=== PATIENT | female | born 1930 | race Caucasian/White ===

== ENCOUNTER 2020-05-23 14:33 | Inpatient (IN) | payer MEDICARE, OTHER ==
[~2020-05-23] VITALS: Ht 154.9 cm; Wt 67.4 kg
[2020-05-23] VITALS (253 sets, daily range): BP systolic 76–125; BP diastolic 51–96; PULSE 92–124; TEMP 97.5–98.5; O2SAT 36–100
--- NOTE | 2020-05-23 15:30 | NUR ---
PATIENT ADMITED INTO ROOM 342 VIA EMS FROM [place]. A&O BUT PAMUNKEY. NOTED IRREGULAR HR, PATIENT HAS HX OF A-FIB. OTHER VSS. C/O ABD PAIN, ESPECIALLY WITH MOVEMENT. PATIENT RECEIVED IV DILAUDID & ORAL TYLENOL AT [facility]. PATIENT IS A LITTLE DROWSY BUT ARROUSES EASILY TO VERBAL STIMULI. ABD IS ROUND, SOFT AND WITH POSITIVE BOWL SOUNDS. PATIENT HAD A LAP ARTHUR 05/15 IN [place] AND ADMITTED HERE FOR ERCP. PATIENT HAS BEEN NPO. IV FLUIDS INFUSING INTO RIGHT FORARM IV. RIGHT AC IV TO INT. HEAD TO TOE ASSESSMENT WNL. ORIENTED TO ROOM. CALL LIGHT IN REACH.
--- NOTE | 2020-05-23 15:50 | NUR ---
HOSPITALIST AT BEDSIDE.
--- NOTE | 2020-05-23 16:50 | NUR ---
PATIENT GOING DOWN FOR ERCP. TALKED WITH DAUGHTER KIM. ALLAN AT BEDSIDE.
[2020-05-23] MEDS ORDERED: TYLENOL 500MG500 MG PO (17:50)
[2020-05-23] MEDS ORDERED: BUMEX2 MG PO (17:51)
[2020-05-23] MEDS ORDERED: ELIQUIS 2.5 PO (17:52)
[2020-05-23] MEDS ORDERED: TOPROL XL 25MG25 MG PO (17:53)
[2020-05-23] MEDS ORDERED: PROVENTIL0.09 MG/A1 IH (17:53)
[2020-05-23] MEDS ORDERED: RESTORIL 1515 MG/CAP PO (17:54)
[2020-05-23] MEDS ORDERED: ZOLOFT 50MG50 MG PO (17:55)
[2020-05-23] MEDS ORDERED: ATIVAN 0.50.5 MG/TAB PO (17:55)
[2020-05-23] MEDS ORDERED: LOTRISONE 0.05%1 CRE TOP (17:56)
--- NOTE | 2020-05-23 19:00 | NUR ---
Received report from ROOM SERVICE FOOD SERVER about patients post op condition. Nurse stated they were bringing patient over to ICU to admit to room 1. Patient arrived to unit via stretcher. VS as followed --99/51, 98% on 3L NC, 97.2 temperature, 122hr. Will resume care of patient at this time.
--- NOTE | 2020-05-23 19:27 | NUR ---
Patient arrived to unit at 1927, placed in ICU room 1. Received report from MAMADOU Estrada on surgical floor prior to patients procedure.
[2020-05-23 20:07] LABS: MEAN CELL VOLUME 105 fl (80.0-100.0); MEAN CORPUSCULAR HGB CONC 31 g/dl (33.0-37.0); MEAN PLATELET VOLUME 9.1 fl (7.4-10.4); PLATELET COUNT 312 K/mm3 (130-400); RED BLOOD COUNT 2.99 M/mm3 (4.10-5.30); REDCELL DISTRIBUTION WIDTH-CV 16.7 % (11.5-14.5)
[2020-05-23 20:14] LABS: HEMATOCRIT 31.3 % (37.0-47.0); HEMOGLOBIN 9.8 g/dl (12.5-16.0); MEAN CORPUSCULAR HEMOGLOBIN 33 pg (27.0-31.0)
--- NOTE | 2020-05-23 20:14 | NUR ---
Received critical lab WBC result of 53.1 for patient. Notified PETRA Claire of critical value at 2014.
[2020-05-23 20:20] LABS: CALCIUM 8.5 mg/dL (8.4-10.2); CREATININE, serum 1.75 (0.52-1.25); POTASSIUM 4.2 mmol/L (3.4-5.0); TOTAL PROTEIN 5.5 gm/dL (6.4-8.2)
[2020-05-23 20:35] LABS: ANISOCYTOSIS 1+; BAND 6 % (0-10); HYPOCHROMIA 1+; LYMPHOCYTE 3 % (20.0-51.0); METAMYELOCYTE 1 % (0-0); NEUTROPHILS 87 % (42.0-75.2); PLATELET ESTIMATE NORMAL (NORMAL)
[2020-05-23 20:50] LABS: TSH w REFLEX 3.69 uIU/mL (0.465-4.680)
--- NOTE | 2020-05-23 21:00 | NUR ---
Spoke with patients daughter, Megha Larsen, who gave updated medication list for patient. Nurse gave update on patient status to daughter. Daughter stated if nursing staff needs anything or has any questions to call. Daughters main concern is patients anxiety. Nurse assured daughter that patient had PRN orders for ativan that are similar to watch she takes at home and if any changes need to be made to help ease patients anxiety or make her more comfortable the patients care team would notifiy the hospitalist. Daughter appreciative of care and stated she would call for an update tomorrow morning.
[2020-05-24] VITALS (949 sets, daily range): BP systolic 100–123; BP diastolic 55–82; PULSE 87–112; TEMP 97.5–98.5; O2SAT 31–100
[2020-05-24] MEDS ORDERED: LASIX 40MG TABL40 MG PO (00:25)
[2020-05-24] MEDS ORDERED: FLAGYL500 MG PO (00:27)
--- NOTE | 2020-05-24 01:21 | NUR ---
Called PETRA Claire and notified of patient having soft pressures with maps ranging in the 63-69s. received orders to increase IV fluids to 100mls/hr
[2020-05-24 05:00] LABS: MEAN CELL VOLUME 103 fl (80.0-100.0); MEAN CORPUSCULAR HGB CONC 32 g/dl (33.0-37.0); PLATELET COUNT 257 K/mm3 (130-400); RED BLOOD COUNT 2.71 M/mm3 (4.10-5.30); REDCELL DISTRIBUTION WIDTH-CV 16.5 % (11.5-14.5)
[2020-05-24 05:07] LABS: HEMATOCRIT 27.8 % (37.0-47.0); HEMOGLOBIN 8.9 g/dl (12.5-16.0); MEAN CORPUSCULAR HEMOGLOBIN 33 pg (27.0-31.0)
--- NOTE | 2020-05-24 05:13 | NUR ---
Patient has belongings bag in room with change of clothes and shoes and a black purse with a wallet, eyeglasses and cell phone. patient did not want any valuables locked away.
[2020-05-24 05:15] LABS: ALBUMIN 2.8 gm/dL (3.5-5.0); BILIRUBIN,TOTAL 0.8 mg/dL (0.0-1.0); CREATININE, serum 1.62 (0.52-1.25); MAGNESIUM 1.7 mg/dL (1.6-2.3); POTASSIUM 3.9 mmol/L (3.4-5.0); TOTAL PROTEIN 5.2 gm/dL (6.4-8.2)
--- NOTE | 2020-05-24 05:15 | NUR ---
Received call from lab for critical WBC of 43.9. Physician not notified d/t wbc trending down from 53.1
[2020-05-24 05:47] LABS: BAND 16 % (0-10); HYPOCHROMIA 1+; LYMPHOCYTE 1 % (20.0-51.0); NEUTROPHILS 81 % (42.0-75.2)
[2020-05-24 05:48] LABS: ANISOCYTOSIS 1+; OVALOCYTES 1+; TEAR DROP CELLS 1+
[2020-05-24 05:49] LABS: PLATELET ESTIMATE NORMAL (NORMAL)
--- NOTE | 2020-05-24 19:31 | NUR ---
Received report from MAMADOU Galvan. All medications verified and all questions answered. Patient resting in bed watching TV during report. VSS. Will resume care at this time.
[2020-05-25] VITALS (337 sets, daily range): BP systolic 104–156; BP diastolic 56–82; PULSE 60–94; TEMP 97.6–98.1; O2SAT 75–100
[2020-05-25 05:58] LABS: MEAN CELL VOLUME 103 fl (80.0-100.0); MEAN CORPUSCULAR HGB CONC 31 g/dl (33.0-37.0); MEAN PLATELET VOLUME 9.5 fl (7.4-10.4); PLATELET COUNT 227 K/mm3 (130-400); RED BLOOD COUNT 2.53 M/mm3 (4.10-5.30); REDCELL DISTRIBUTION WIDTH-CV 16.7 % (11.5-14.5)
[2020-05-25 06:13] LABS: CREATININE, serum 1.46 (0.52-1.25); MAGNESIUM 1.9 mg/dL (1.6-2.3); POTASSIUM 3.8 mmol/L (3.4-5.0)
[2020-05-25 06:17] LABS: HEMATOCRIT 26.1 % (37.0-47.0); HEMOGLOBIN 8.1 g/dl (12.5-16.0); MEAN CORPUSCULAR HEMOGLOBIN 32 pg (27.0-31.0)
[2020-05-25 06:44] LABS: LYMPHOCYTE 5 % (20.0-51.0); NEUTROPHILS 89 % (42.0-75.2)
[2020-05-25 06:45] LABS: ANISOCYTOSIS 1+; HYPOCHROMIA 2+; PLATELET ESTIMATE NORMAL (NORMAL)
[2020-05-25 06:46] LABS: OVALOCYTES 1+
[2020-05-25] MEDS ORDERED: ELIQUIS 2.5 PO (12:00)
[2020-05-25] MEDS ORDERED: RESTORIL 1515 MG/CAP PO (12:00)
[2020-05-25] MEDS ORDERED: NORCO 325 MG-7.1 TAB PO (12:00)
[2020-05-25] MEDS ORDERED: FOLIC ACID 40400 MCG PO (12:00)
[2020-05-25] MEDS ORDERED: MULTI-VITAMIN W1 TA1 PO (12:01)
[2020-05-25] MEDS ORDERED: CALCIUM CARBON650 M2 (12:02)
--- NOTE | 2020-05-25 12:37 | NUR ---
Patient transfered from ICU. Report from [place]. Assessment completed. Med rec reviewed. Patient requested anxiety medication, reporting the masks her very anxious. Spoke with [employer] student ROBBY & we discussed her abdomen & she came & saw patient. Patient had a prior TONIO drain with an old dressing packed in site. Patient old dressing removed & a gauze & tegaderm applied, NO PACKING. Brusing noted to abdomen. Int to AC & IVF per orders to Right forearm. Left restricted extremity. Right hand elevated on pillows. Will monitor closely.
--- NOTE | 2020-05-25 14:26 | NUR ---
Patient now resting in bed. Toleated her lunch. Will monitor.
--- NOTE | 2020-05-25 16:27 | NUR ---
SW met with patient to complete intake. Patient states that she lives with her in [facility] [phone]. Patient states that her daughter Renuka [phone] handles all of her affairs, but is unsure about the actual [facility]- document. SW called daughter, but was unable to reach after intake was complete. Patient states she occasionally utilizes a walker and is independent with ADL's, however states that she does receive services from [facility] for assistance. Patient states that her PCP is DR. Rosario and she obtains medications from [facility]. Patient states her plan is to return to her home upon DC. SW will continue to follow.
--- NOTE | 2020-05-25 16:30 | NUR ---
Patient up to the bathroom. Voided. Steady gait. Ivf. [place] for pain. Sitting up and having a snack. Will monitor
--- NOTE | 2020-05-25 19:44 | NUR ---
Patient resting in bed. She did well with dinner. [place] relived pain. Bedside report to night nurse.
--- NOTE | 2020-05-25 22:59 | NUR ---
PT REFUSED ELIQUIS STATING IT COST TOO MUCH AND HER REGULAR BUFFET SERVER WAS GOING TO ORDER SOMETHING ELSE FOR HER. SHE STATED SHE HAD BEEN TAKING FREE SAMPLES OF ELIQUIS BEFORE NOW AND HAD BEEN ON COUMADIN PRIOR TO THAT. HOSPITALIST NOTIFIED. 1 TIME DOSE OF LOVENOX ADMIN.
[2020-05-26 04:09] VITALS: BP 128/71; PULSE 87; TEMP 98.4
[2020-05-26 06:03] LABS: MEAN CELL VOLUME 105 fl (80.0-100.0); MEAN CORPUSCULAR HGB CONC 31 g/dl (33.0-37.0); MEAN PLATELET VOLUME 9.4 fl (7.4-10.4); PLATELET COUNT 237 K/mm3 (130-400); RED BLOOD COUNT 2.45 M/mm3 (4.10-5.30); REDCELL DISTRIBUTION WIDTH-CV 16.5 % (11.5-14.5)
[2020-05-26 06:07] LABS: HEMATOCRIT 25.6 % (37.0-47.0); HEMOGLOBIN 7.8 g/dl (12.5-16.0); MEAN CORPUSCULAR HEMOGLOBIN 32 pg (27.0-31.0)
[2020-05-26 06:12] LABS: INR 1.1 (0.8-3.0); PROTHROMBIN TIME 12.5 SECONDS (9.7-12.8)
[2020-05-26 06:14] LABS: ALBUMIN 2.5 gm/dL (3.5-5.0); BILIRUBIN,TOTAL 0.4 mg/dL (0.0-1.0); CALCIUM 8.2 mg/dL (8.4-10.2); CREATININE, serum 1.25 (0.52-1.25); MAGNESIUM 1.9 mg/dL (1.6-2.3); POTASSIUM 3.9 mmol/L (3.4-5.0); TOTAL PROTEIN 4.9 gm/dL (6.4-8.2)
--- NOTE | 2020-05-26 06:30 | NUR ---
Warfarin Initial Dosing Pharmacy Note Ordering Provider: Jovi Singh MD Indication: Atrial fibrillation LABS: INR 1.1 Recommendation: New start warfarin, bridging with enoxaparin. Will continue Warfarin 5 mg po qHS. Pharmacy will follow daily INR levels.
[2020-05-26 07:12] VITALS: BP 127/64; PULSE 86; TEMP 98
[2020-05-26 07:25] LABS: ANISOCYTOSIS 1+; BAND 2 % (0-10); HYPOCHROMIA 1+; LYMPHOCYTE 7 % (20.0-51.0); PLATELET ESTIMATE NORMAL (NORMAL)
[2020-05-26 07:26] LABS: EOSINOPHIL 1 % (0-4); NEUTROPHILS 84 % (42.0-75.2)
[2020-05-26 07:28] LABS: OVALOCYTES 1+
--- NOTE | 2020-05-26 07:33 | NUR ---
Patient up to the chair this am for breakfast. [place] for pain per request. Pain to her abdomen. Patient has dyspnea with exertion. Vss on O2. Edema noted. Will monitor.
[2020-05-26 11:00] VITALS: BP 120/58; PULSE 78; TEMP 97.9
--- NOTE | 2020-05-26 11:02 | NUR ---
Patient resting in bed. Vss on room air. She worked with therapy. One Int Dc due to infiltration
[2020-05-26 15:22] VITALS: BP 125/70; PULSE 90; TEMP 98.2
--- NOTE | 2020-05-26 16:42 | NUR ---
The patient will be needing IV antibiotics at discharge once daily for two weeks and PICC care. The patient has [facility] and would like to continue with them. Computer Support Analyst contacted [facility] and Yarelis, Clinical Application Systems Engineer with [facility] and they are willing to go to the patient's home to administer the antibiotic daily for the two week course. KIKA faxed referral to [facility] for IV antibiotic. Tracey with [facility] is checking benefits and will inform KIKA if they can accommodate the patient. KIKA met with the patient to review options for antibiotic administration. The patient was in agreeance with the above plan. KIKA collaborated the above information with the patient's nurse.
--- NOTE | 2020-05-26 17:16 | NUR ---
Patient rested well this afternoon in bed. Patient now up to the bathroom, steady on her feet with walker. Dyspnea with exertion. Vss on room air. She denies feeling like she needs the O2. Int. Dinner ordered. [place] for pain in her abdomen per her request. Patient offered shower, refused. She did stand at sink and wash her hands and face.
[2020-05-26 17:45] LABS: HEMATOCRIT 27.6 % (37.0-47.0); HEMOGLOBIN 8.4 g/dl (12.5-16.0)
--- NOTE | 2020-05-26 19:41 | NUR ---
Patient back to bed. Feeling better after noroc. She is aware of plan of care. Bedside report to Rhianna CEDILLO.
--- NOTE | 2020-05-26 20:00 | NUR ---
Report received, assumed care for satellite specialist. Assessment complete. A&Ox3. VS stable. Rating pain 4/10 to abdomen-states she doesnt need pain medications yet. Noted to have brusing to abdomen as well as right cerda. Tolerating PO. Voiding without difficulty. INT to right AC flushes without difficulty. +3 edema to lower extremities. Plan of care discussed for this shift to include HS meds/pain meds/antibiotics/calling for questions/concerns. Verbalizes understanding. Call light in reach. Will monitor.
[2020-05-26 20:23] VITALS: BP 99/62; PULSE 54; TEMP 98.6
[2020-05-26 23:54] VITALS: BP 113/65; PULSE 66; TEMP 97.4
[2020-05-27 05:25] VITALS: BP 117/75; PULSE 80; TEMP 98.5
--- NOTE | 2020-05-27 06:00 | NUR ---
Rested well this shift. C/O pain at this time to abdomen/flanks. [place] given per dr order. Is very bruised to abdomen and right side. Denies nausea/shortness of breath. Vitals remained stable. Call light in reach. Will monitor.
[2020-05-27 06:40] LABS: HEMATOCRIT 25.9 % (37.0-47.0); HEMOGLOBIN 7.9 g/dl (12.5-16.0); MEAN CELL VOLUME 103 fl (80.0-100.0); MEAN CORPUSCULAR HEMOGLOBIN 31 pg (27.0-31.0); MEAN CORPUSCULAR HGB CONC 31 g/dl (33.0-37.0); MEAN PLATELET VOLUME 9.3 fl (7.4-10.4); PLATELET COUNT 265 K/mm3 (130-400); RED BLOOD COUNT 2.52 M/mm3 (4.10-5.30); REDCELL DISTRIBUTION WIDTH-CV 16.4 % (11.5-14.5)
[2020-05-27 06:52] LABS: ALBUMIN 2.6 gm/dL (3.5-5.0); BILIRUBIN,TOTAL 0.5 mg/dL (0.0-1.0); CALCIUM 8.3 mg/dL (8.4-10.2); CREATININE, serum 1.02 (0.52-1.25); POTASSIUM 4.4 mmol/L (3.4-5.0)
--- NOTE | 2020-05-27 06:55 | NUR ---
Lying in bed in supine position with eyes closed. Opens eyes when name called out. ALert and oriented x4. Minimal pain in abd at this time. Lap sites x4 with edges well approximated, no redness/swelling/discharge. Previous TONIO site to right lower abd with gauze dressing CDI. Bruising noted to abd, back, and right cerda. Patient has 3+ bilat lower extremity edema. Patient denies needs at this time.
[2020-05-27 06:57] LABS: INR 1.8 (0.8-3.0); PROTHROMBIN TIME 20.7 SECONDS (9.7-12.8)
[2020-05-27 07:47] LABS: BAND 2 % (0-10); EOSINOPHIL 5 % (0-4); METAMYELOCYTE 3 % (0-0); MYELOCYTE 2 % (0-0)
[2020-05-27 07:49] VITALS: BP 113/49; PULSE 77; TEMP 98.1
[2020-05-27 07:50] LABS: ANISOCYTOSIS 1+; PLATELET ESTIMATE NORMAL (NORMAL)
[2020-05-27 07:51] LABS: HYPOCHROMIA 2+; OVALOCYTES 1+
[2020-05-27 07:55] LABS: LYMPHOCYTE 9 % (20.0-51.0); NEUTROPHILS 68 % (42.0-75.2)
[2020-05-27] MEDS ORDERED: FERROUS SU325 MG/TAB PO (08:15)
[2020-05-27] MEDS ORDERED: COUMADIN 5MG5 MG/TAB PO (08:16)
[2020-05-27] MEDS ORDERED: LANOXIN 0.120.125 MG PO (08:16)
[2020-05-27 09:00] LABS: PATHOLOGY DIFF REVIEW OK
[2020-05-27] MEDS ORDERED: INVANZ INJ1 G/VIAL IV (09:02)
[2020-05-27] MEDS ORDERED: DIFLUCAN150 MG PO (09:03)
--- NOTE | 2020-05-27 10:17 | NUR ---
Lying in bed watching TV. Patient aware that discharge orders have been placed. Explain that we will need to get PICC line in and Maria L is coming back to get this inserted. 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 Explain this is fine. Denies additional needs at this time.
[2020-05-27 11:20] VITALS: BP 119/62; PULSE 97; TEMP 8.4
--- NOTE | 2020-05-27 11:26 | NUR ---
Sitting up in chair watching TV. Minimal pain at this time, denies need for pain medication. Denies additional needs.
--- NOTE | 2020-05-27 11:33 | NUR ---
Patient says that her son will now be the one to come pick her up and we just need to let her know when he can come get her. Explain that we need to wait on Maria L to place PICC and then we will go from there on times.
--- NOTE | 2020-05-27 15:14 | NUR ---
Review all discharge instructions with the patient. Questions answered. Patient verbalizes understanding and signs discharge paperwork. Discharg epacket provided to the patient. Patient will call her son to let him know that she is ready for hop picker and then let staff know when he is here to get her. Patient denies additional needs at this time.
--- NOTE | 2020-05-27 15:24 | NUR ---
The patient to discharge home today, 05/27. The patient will have [facility], PT/OT/Nursing services. The patient will be needing IV antiobiotics for a two week period, starting 05/28. Joanna with [facility] reports they can accommodate the patient with her daily infusions. Tracey with [facility] reports they will deliver the antibiotic this night. The nurse from [facility] to visit the patient on 05/28 to begin IV treatments. The patient's son will provide transportation home. Discharge orders and script faxed. There are no additional needs.
[2020-05-27 15:52] VITALS: BP 117/70; PULSE 114; TEMP 98.4
--- NOTE | 2020-05-27 16:45 | NUR ---
Patient calls and says that her daughter is here to pick her up at the ER entrance. Patient taken out to vehicle via wheelchair with all belongings by JOY Mcrae.
== END 2020-05-27 16:45 | disposition home health service (06) | DRG 871 ==
LOC: SURG 15:30 → EDSTATUS 16:00 → SDCO 16:00 → ICU 19:21 → SURG 05-25 11:35
PROVIDERS: Internal Medicine; Internal Medicine Gastroenterology; Nurse Practitioner Family; Physician Assistant; Student in an Organized Health Care Education/Training Program; ADMIT Family Medicine
PROC: BF10YZZ Fluoroscopy of Bile Ducts using Other Contrast (ICD-10-PCS; 2020-05-23)
PROC: 0F798DZ Dilation of Common Bile Duct with Intraluminal Device, Via Natural or Artificial Opening Endoscopic (ICD-10-PCS; principal; 2020-05-23 16:00)
PROC: 02HV33Z Insertion of Infusion Device into Superior Vena Cava, Percutaneous Approach (ICD-10-PCS; 2020-05-27)
DX: A41.9 Sepsis, unspecified organism (principal); J96.01 Acute respiratory failure with hypoxia; K83.3 Fistula of bile duct; I13.0 Hypertensive heart and chronic kidney disease with heart failure and stage 1 through stage 4 chronic kidney disease, or unspecified chronic kidney disease; K91.89 Other postprocedural complications and disorders of digestive system; I48.20 Chronic atrial fibrillation, unspecified; I50.32 Chronic diastolic (congestive) heart failure; E87.1 Hypo-osmolality and hyponatremia; K83.9 Disease of biliary tract, unspecified; J44.9 Chronic obstructive pulmonary disease, unspecified; N18.30 Chronic kidney disease, stage 3 unspecified; K57.10 Diverticulosis of small intestine without perforation or abscess without bleeding; I95.9 Hypotension, unspecified; I08.1 Rheumatic disorders of both mitral and tricuspid valves; D46.9 Myelodysplastic syndrome, unspecified; M40.209 Unspecified kyphosis, site unspecified; D63.1 Anemia in chronic kidney disease; F41.9 Anxiety disorder, unspecified; E78.5 Hyperlipidemia, unspecified; R53.81 Other malaise; Z79.01 Long term (current) use of anticoagulants; Z96.652 Presence of left artificial knee joint; Z90.710 Acquired absence of both cervix and uterus; Z87.891 Personal history of nicotine dependence; Z88.6 Allergy status to analgesic agent
CPT/HCPCS: 99223-AI; 99233-AI; 99239; A9284; C1751; C1769; C1892; C2625; J1160; J1170; J1450; J1650; J2185; J3010; J7030; J7040

== ENCOUNTER 2020-07-11 10:11 | Day surgery (SDC) | payer MEDICARE ==
[~2020-07-11] VITALS: Ht 152.4 cm; Wt 52.8 kg
[2020-07-11] VITALS (8 sets, daily range): BP systolic 114–145; BP diastolic 67–87; PULSE 60–103; TEMP 97.5–98.6
[~2020-07-11 10:11] MED LIST: ATIVAN 0.50.5 MG/TAB PO; BUMEX2 MG PO; CALCIUM CARBON650 M2; COUMADIN 5MG5 MG/TAB PO; DIFLUCAN150 MG PO; ELIQUIS 2.5 PO; FERROUS SU325 MG/TAB PO; FLAGYL500 MG PO; FOLIC ACID 40400 MCG PO; INVANZ INJ1 G/VIAL IV; LANOXIN 0.120.125 MG PO; LASIX 40MG TABL40 MG PO; LOTRISONE 0.05%1 CRE TOP; MULTI-VITAMIN W1 TA1 PO; NORCO 325 MG-7.1 TAB PO; PROVENTIL0.09 MG/A1 IH; RESTORIL 1515 MG/CAP PO; TOPROL XL 25MG25 MG PO; TYLENOL 500MG500 MG PO; ZOLOFT 50MG50 MG PO
[2020-07-11] MEDS ORDERED: PROTONIX 40MG T40 MG PO (11:08)
[2020-07-11] MEDS ORDERED: FERROUS GL325 MG/TAB PO (11:08)
[2020-07-11] MEDS ORDERED: LASIX 40MG TABL40 MG PO (11:09)
[2020-07-11] MEDS ORDERED: PRINIVIL10 MG PO (11:10)
[2020-07-11] MEDS ORDERED: ATIVAN 0.50.5 MG/TAB PO (11:11)
--- NOTE | 2020-07-11 12:09 | NUR ---
PATIENT TRANSPORTED PER CART FROM GI SUITE TO BAY 3 ACCOMPANIED BY ENDO RN. PATIENT AMBULATED FROM CART TO CHAIR WITH 2 ASSIST. STEADY GAIT. MONITORS APPLIED. DIFFICULT TO GET SAO2, DUE TO IRREGULAR HEART RATE. PROBE PLACED ON PATIENT'S TOE. PATIENT TALKING TO STAFF AND DAUGHTER. VSS STABLE. VERBAL REPORT RECEIVED.
--- NOTE | 2020-07-11 12:20 | NUR ---
VSS ON ROOM AIR. PATIENT DENIES NAUSEA AND DISCOMFORT. TALKS WITH DAUGTHER. PATIENT GIVEN JUICE TO DRINK. PER VERBAL INSTRUCTIONS FROM DR DARBY. PATIENT TO REMAIN ON CLEAR LIQUIDS WHILE HERE. PATIENT MAY HAVE BLAND DIET AT HOME TODAY.
--- NOTE | 2020-07-11 12:46 | NUR ---
VSS ON ROOM AIR. PATIENT AMBULATED TO RESTROOM WITH STEADY GAIT. PATIENT VOIDS WITHOUT PROBLEMS. AMBULATED BACK TO CHAIR WITHOUT PROBLEMS. DRINKS JUICE WITHOUT PROBLEMS. DENIES NAUSEA AND DISCOMFORT. GIVEN ANOTHER GLASS OF JUICE TO DRINK.
--- NOTE | 2020-07-11 13:32 | NUR ---
VSS ON ROOM AIR. PATIENT RESTING IN CHAIR WITH EYES CLOSED AND EVEN RESPIRATIONS. AWAKENS WHEN SPOKEN TO. DENIES DISCOMFORT AND NAUSEA. DAUGHTER AT CHAIRSIDE.
--- NOTE | 2020-07-11 14:01 | NUR ---
1400 VSS ON ROOM AIR. PATIENT DENIES DISCOMFORT AND NAUSEA. DAUGHTER AT CHAIR SIDE. IV DC'D PER PROTOCOL. DISCHARGE INSTRUCTIONS GIVEN VERBAL AND DISCHARGE PACKET PROVIDED. QUESTIONS ANWSERED. PATIENT AND DAUGHTER VOICED UNDERSTANDING. DISCHARGED PER WHEEL CHAIR ACCOMPANIED BY RN TO PRIVATE VECHILE DRIVEN BY DAUGHTER.
== END 2020-07-11 14:04 | disposition home or self-care (01) ==
LOC: SDCO 10:11
DX: Z46.89 Encounter for fitting and adjustment of other specified devices (principal); K83.8 Other specified diseases of biliary tract; K31.89 Other diseases of stomach and duodenum; E78.5 Hyperlipidemia, unspecified; J44.9 Chronic obstructive pulmonary disease, unspecified; D53.9 Nutritional anemia, unspecified; I50.9 Heart failure, unspecified; I48.20 Chronic atrial fibrillation, unspecified; I13.0 Hypertensive heart and chronic kidney disease with heart failure and stage 1 through stage 4 chronic kidney disease, or unspecified chronic kidney disease; N18.30 Chronic kidney disease, stage 3 unspecified; M40.209 Unspecified kyphosis, site unspecified; F41.9 Anxiety disorder, unspecified; F32.9 Major depressive disorder, single episode, unspecified; Z20.822 Contact with and (suspected) exposure to COVID-19; Z79.899 Other long term (current) drug therapy; Z79.82 Long term (current) use of aspirin; Z79.01 Long term (current) use of anticoagulants; Z88.0 Allergy status to penicillin; Z88.8 Allergy status to other drugs, medicaments and biological substances
CPT/HCPCS: C1769; J2704; J7030; Q9967

== ENCOUNTER → 2021-11-26 | Outpatient (CLI) | payer MEDICARE ==
[~2021-11-26] MED LIST changes: +FERROUS GL325 MG/TAB PO; +PRINIVIL10 MG PO; +PROTONIX 40MG T40 MG PO
== END ==
LOC: COL.RAD 10:30
DX: L02.91 Cutaneous abscess, unspecified (principal); K83.8 Other specified diseases of biliary tract; N27.0 Small kidney, unilateral; Z90.49 Acquired absence of other specified parts of digestive tract